=== PATIENT | female | born 1970 | race Caucasian/White ===

== ENCOUNTER 2022-04-13 01:54 | Inpatient (IN) ==
[2022-04-13] MEDS ORDERED: Ondansetron 4 MG/2 ML VIAL IVP PRN (11:15)
[2022-04-13] MEDS ORDERED: Naloxone 0.4 MG/ML INJ IVP PRN (11:15)
[2022-04-13] MEDS ORDERED: Acetaminophen 325 MG TABLET PO PRN (11:15)
[2022-04-13 11:56] LABS: Basophils % 0.2 %; Hematocrit 29.8 % (35.3-44.9); Hemoglobin 9.5 g/dL (11.5-15.4); Immature Granulocytes % 1.2 % (0-4); Lymphocytes # 0.6 K/mcL (0.6-4.6); Mean Corpuscular HGB Conc 31.9 g/dL (31.6-35.5); Mean Corpuscular Hemoglobin 25.5 pg (28.0-33.3); Mean Corpuscular Volume 79.9 fL (83.0-100.0); Mean Platelet Volume 8.9 fL (9.4-12.4); Monocytes # 0.4 K/mcL (0.0-1.3); Monocytes % 2.1 %; Neutrophils # 18.5 K/mcL (1.6-8.9); Platelet Count 490 K/mcL (140-400); Red Blood Count 3.73 M/mcL (3.82-4.97); Red Cell Distribution Width 14.3 % (11.5-14.5); Segmented Neutrophils % 93.5 %; White Blood Count 19.8 K/mcL (4.3-11.1)
[2022-04-13 12:12] LABS: INR 1.3; Prothrombin Time 14.8 Seconds (9.4-12.1)
[2022-04-13 12:15] LABS: Activated Partial Thrombo Time 34.8 Seconds (26.0-36.0)
[2022-04-13] MEDS: Piperacillin/Tazobactam 3.375 GM in 0.9 % Sodium Chloride Mini Bag 100 ML IVPB SCH ×2 (12:26→22:58)
[2022-04-13 12:35] LABS: Alanine Aminotransferase 27 Units/L (7-52); Albumin 3.4 g/dL (3.5-5.7); Albumin/Globulin Ratio 0.9 (1.1-2.2); Alkaline Phosphatase 102 Units/L (34-104); Aspartate Amino Transferase 39 Units/L (13-39); BUN/Creatinine Ratio 27 (6-26); Bilirubin,Total 0.3 mg/dL (0.3-1.0); Blood Urea Nitrogen 16 mg/dL (6-20); Calcium 9.2 mg/dL (8.6-10.3); Carbon Dioxide 26 mEq/L (23-29); Chloride 102 mEq/L (98-107); Globulin 3.8 g/dL (2.4-3.5); Glucose 124 mg/dL (70-105); Magnesium 1.8 mg/dL (1.6-2.6); Osmolality,Calculated 283 (280-300); Potassium 4.3 mEq/L (3.5-5.1); Sodium 135 mEq/L (136-145); Total Protein 7.2 g/dL (6.4-8.9); Troponin I < 0.03 ng/mL (< 0.04)
[2022-04-13] MEDS: Ipratropium/Albuterol Neb 3 ML IH SCH ×2 (15:44→22:49)
[2022-04-13] MEDS ORDERED: Vancomycin 1,500 MG/265 ML IV.SOLN IVPB ONE (16:00)
[2022-04-13] MEDS: MethylPREDNISolone 40 MG/ML VIAL IVP SCH ×2 (16:54→22:57)
[2022-04-13] MEDS: 0.9 % Sodium Chloride 1,000 ML IVC SCH (16:54)
[2022-04-13] MEDS: *HR* Heparin 5,000 UNIT/ML VIAL SQ SCH (16:57)
[2022-04-14 00:55] LABS: Adenovirus Not Detected (Not Detect); Bordetella Pertussis Not Detected (Not Detect); Chlamydophila pneumoniae Not Detected (Not Detect); Coronavirus 229E Not Detected (Not Detect); Coronavirus HKU1 Not Detected (Not Detect); Coronavirus NL63 Not Detected (Not Detect); Coronavirus OC43 Not Detected (Not Detect); Human Metapneumovirus Not Detected (Not Detect); Human Rhinovirus/Enterovirus Not Detected (Not Detect); Influenza A Subtype 2009 H1 Not Detected (Not Detect); Influenza B Not Detected (Not Detect); Mycoplasma pneumoniae Not Detected (Not Detect); Parainfluenza Virus 1 Not Detected (Not Detect); Parainfluenza Virus 2 Not Detected (Not Detect); Parainfluenza Virus 3 Not Detected (Not Detect); Parainfluenza Virus 4 Not Detected (Not Detect); Respiratory Syncytial Virus Not Detected (Not Detect); SARS-CoV-2 Not Detected (Not Detect)
[2022-04-14] MEDS ORDERED: Vancomycin 1,250 MG/262.5 ML IV.SOLN IVPB SCH (04:00)
[2022-04-14] MEDS: Ipratropium/Albuterol Neb 3 ML IH SCH ×4 (04:26→22:22)
[2022-04-14] MEDS: 0.9 % Sodium Chloride 1,000 ML IVC SCH ×3 (05:21→22:02)
[2022-04-14] MEDS: Piperacillin/Tazobactam 3.375 GM in 0.9 % Sodium Chloride Mini Bag 100 ML IVPB SCH ×3 (05:21→20:36)
[2022-04-14 05:22] LABS: Basophils % 0.1 %; Mean Platelet Volume 9.4 fL (9.4-12.4); Red Cell Distribution Width 14.5 % (11.5-14.5)
[2022-04-14] MEDS: *HR* Heparin 5,000 UNIT/ML VIAL SQ SCH ×2 (05:22→16:39)
[2022-04-14 05:23] LABS: Hematocrit 29.9 % (35.3-44.9); Hemoglobin 9.4 g/dL (11.5-15.4); Immature Granulocytes % 1.4 % (0-4); Lymphocytes # 0.7 K/mcL (0.6-4.6); Lymphocytes % 2.6 %; Mean Corpuscular HGB Conc 31.4 g/dL (31.6-35.5); Mean Corpuscular Hemoglobin 25.5 pg (28.0-33.3); Monocytes # 0.8 K/mcL (0.0-1.3); Monocytes % 2.9 %; Neutrophils # 24.7 K/mcL (1.6-8.9); Platelet Count 507 K/mcL (140-400); Red Blood Count 3.69 M/mcL (3.82-4.97); White Blood Count 26.6 K/mcL (4.3-11.1)
[2022-04-14 05:41] LABS: BUN/Creatinine Ratio 26 (6-26); Blood Urea Nitrogen 14 mg/dL (6-20); Calcium 8.7 mg/dL (8.6-10.3); Carbon Dioxide 23 mEq/L (23-29); Chloride 107 mEq/L (98-107); Glucose 155 mg/dL (70-105); Osmolality,Calculated 284 (280-300); Potassium 3.9 mEq/L (3.5-5.1); Sodium 135 mEq/L (136-145)
[2022-04-14 06:05] LABS: Hypochromasia Present (Not Present); Platelet Estimate Increased (Normal)
[2022-04-14] MEDS ORDERED: Furosemide 20 MG/2 ML VIAL IVP ONE (07:37)
[2022-04-14] MEDS: MethylPREDNISolone 40 MG/ML VIAL IVP SCH (08:42)
[2022-04-14] MEDS: predniSONE 20 MG TABLET PO SCH (08:48)
[2022-04-14] MEDS: Pantoprazole 40 MG VIAL IVP SCH (08:48)
[2022-04-14 12:03] LABS: Mucus,Urine Few per lpf (None-Few); RBC,Urine 0-3 per hpf (0-3); Squamous Epithelial Cell,Urine Few per hpf (None-Few); WBC,Urine 0-3 per hpf (0-3)
[2022-04-14 12:04] LABS: Bilirubin,Urine Negative (Negative); Blood,Urine Negative (Negative); Clarity,Urine Clear (Clear); Color,Urine Colorless (Yellow); Glucose,Urine (UA) Normal (Normal); Ketones,Urine Negative (Negative); Leukocyte Esterase,Urine Negative (Negative); Nitrite,Urine Negative (Negative); Protein,Urine Negative (Neg-Trace); Specific Gravity,Urine 1.009 (1.010-1.025); Urobilinogen,Urine Normal (Normal)
[2022-04-14] MEDS: Furosemide 40 MG/4 ML VIAL IVP SCH (16:40)
[2022-04-14] MEDS ORDERED: *HR* LORazepam 2 MG/ML VIAL IVP ONE (16:59)
[2022-04-14] MEDS ORDERED: Furosemide 20 MG/2 ML VIAL IVP SCH (17:00)
[2022-04-15] MEDS: 0.9 % Sodium Chloride 1,000 ML IVC SCH ×2 (00:57→05:12)
[2022-04-15] MEDS: Piperacillin/Tazobactam 3.375 GM in 0.9 % Sodium Chloride Mini Bag 100 ML IVPB SCH ×3 (03:15→21:27)
[2022-04-15] MEDS: Ipratropium/Albuterol Neb 3 ML IH SCH ×4 (03:52→21:52)
[2022-04-15] MEDS: *HR* Heparin 5,000 UNIT/ML VIAL SQ SCH ×3 (05:21→17:21)
[2022-04-15] MEDS: FLUoxetine 20 MG CAPSULE PO SCH (07:46)
[2022-04-15] MEDS: predniSONE 20 MG TABLET PO SCH (07:46)
[2022-04-15] MEDS: Pantoprazole 40 MG VIAL IVP SCH (07:47)
[2022-04-15] MEDS: hydrOXYzine pamoate 25 MG CAPSULE PO SCH (07:47)
[2022-04-15] MEDS: Furosemide 40 MG/4 ML VIAL IVP SCH ×2 (07:47→14:47)
[2022-04-15 08:57] LABS: Basophils % 0.1 %; Eosinophils % 0.2 %; Hematocrit 30.9 % (35.3-44.9); Hemoglobin 9.4 g/dL (11.5-15.4); Immature Granulocytes % 1.2 % (0-4); Lymphocytes # 1.7 K/mcL (0.6-4.6); Lymphocytes % 8.3 %; Mean Corpuscular HGB Conc 30.4 g/dL (31.6-35.5); Mean Corpuscular Hemoglobin 24.5 pg (28.0-33.3); Mean Corpuscular Volume 80.5 fL (83.0-100.0); Mean Platelet Volume 9.2 fL (9.4-12.4); Monocytes # 0.9 K/mcL (0.0-1.3); Monocytes % 4.2 %; Neutrophils # 17.7 K/mcL (1.6-8.9); Platelet Count 576 K/mcL (140-400); Red Blood Count 3.84 M/mcL (3.82-4.97); Red Cell Distribution Width 14.7 % (11.5-14.5); White Blood Count 20.6 K/mcL (4.3-11.1)
[2022-04-15 09:13] LABS: BUN/Creatinine Ratio 29 (6-26); Blood Urea Nitrogen 19 mg/dL (6-20); Calcium 8.6 mg/dL (8.6-10.3); Carbon Dioxide 26 mEq/L (23-29); Chloride 103 mEq/L (98-107); Glucose 101 mg/dL (70-105); Magnesium 1.7 mg/dL (1.6-2.6); Osmolality,Calculated 284 (280-300); Potassium 3.6 mEq/L (3.5-5.1); Sodium 136 mEq/L (136-145)
[2022-04-15] MEDS ORDERED: Iopamidol - 370 500 ML MLS IVP ONE (09:50)
[2022-04-15] MEDS ORDERED: Albumin 25% 25gram/100mL 25 GM/100 ML IV.SOLN IVPB ONE (14:45)
[2022-04-15 22:34] LABS: ABG Base Excess 1 mEq/L (-2 to 3); ABG HCO3 26 mEq/L (21-27); ABG Oxygen Saturation 79 % (95-98); ABG PCO2 41 mmHg (35-45); ABG PO2 43 mmHg (85-104); ABG TCO2 27 mEq/L (20-26)
[2022-04-15 22:43] LABS: ABG Base Excess 1 mEq/L (-2 to 3); ABG HCO3 25 mEq/L (21-27); ABG Oxygen Saturation 95 % (95-98); ABG PCO2 36 mmHg (35-45); ABG PH 7.45 pH Units (7.32-7.45); ABG PO2 74 mmHg (85-104); ABG TCO2 26 mEq/L (20-26)
[2022-04-16] MEDS: Ipratropium/Albuterol Neb 3 ML IH SCH ×4 (04:03→22:45)
[2022-04-16 04:29] LABS: Basophils % 0.1 %; Eosinophils # 0.1 K/mcL (0.0-0.6); Eosinophils % 0.3 %; Hematocrit 28.6 % (35.3-44.9); Hemoglobin 8.6 g/dL (11.5-15.4); Immature Granulocytes % 0.8 % (0-4); Lymphocytes # 1.3 K/mcL (0.6-4.6); Lymphocytes % 8.5 %; Mean Corpuscular HGB Conc 30.1 g/dL (31.6-35.5); Mean Corpuscular Hemoglobin 24.4 pg (28.0-33.3); Mean Platelet Volume 9.4 fL (9.4-12.4); Monocytes # 0.8 K/mcL (0.0-1.3); Monocytes % 5.5 %; Neutrophils # 12.5 K/mcL (1.6-8.9); Platelet Count 545 K/mcL (140-400); Red Blood Count 3.53 M/mcL (3.82-4.97); Red Cell Distribution Width 14.7 % (11.5-14.5); Segmented Neutrophils % 84.8 %; White Blood Count 14.8 K/mcL (4.3-11.1)
[2022-04-16 04:50] LABS: BUN/Creatinine Ratio 36 (6-26); Blood Urea Nitrogen 20 mg/dL (6-20); Calcium 8.6 mg/dL (8.6-10.3); Carbon Dioxide 28 mEq/L (23-29); Chloride 103 mEq/L (98-107); Glucose 91 mg/dL (70-105); Osmolality,Calculated 288 (280-300); Potassium 3.5 mEq/L (3.5-5.1); Sodium 138 mEq/L (136-145)
[2022-04-16] MEDS: Piperacillin/Tazobactam 3.375 GM in 0.9 % Sodium Chloride Mini Bag 100 ML IVPB SCH ×3 (05:04→20:02)
[2022-04-16] MEDS: FLUoxetine 20 MG CAPSULE PO SCH (08:44)
[2022-04-16] MEDS: predniSONE 20 MG TABLET PO SCH (08:44)
[2022-04-16] MEDS: hydrOXYzine pamoate 25 MG CAPSULE PO SCH (08:45)
[2022-04-16] MEDS: Pantoprazole 40 MG VIAL IVP SCH (08:47)
[2022-04-16] MEDS: Furosemide 40 MG/4 ML VIAL IVP SCH ×2 (08:47→15:14)
[2022-04-16] MEDS ORDERED: Albuterol 2.5 MG/3 ML NEBULIZER IH PRN (09:59)
[2022-04-16] MEDS ORDERED: *HR* Succinylcholine 200 MG/10 ML VIAL IVP ONE (10:00)
[2022-04-16] MEDS ORDERED: Ondansetron 4 MG/2 ML VIAL ONE (10:00)
[2022-04-16] MEDS ORDERED: Lidocaine -MPF 2% 5 ML VIAL ONE (10:00)
[2022-04-16] MEDS ORDERED: *HR* FentaNYL (PF) 100 MCG/2 ML VIAL ONE (10:00)
[2022-04-16] MEDS ORDERED: *HR* Propofol 200 MG/20 ML VIAL IVP ONE ×2 (10:00→10:51)
[2022-04-16] MEDS ORDERED: Furosemide 20 MG/2 ML VIAL IVP ONE (10:33)
[2022-04-16] MEDS ORDERED: *HR* Phenylephrine 10 MG/ML VIAL ONE (10:56)
[2022-04-16] MEDS ORDERED: Artificial Tears SOLN 15 ML BOTTLE BOTH EYES PRN (11:09)
[2022-04-16] MEDS: FentaNYL (PF) 1,000 MCG/100 ML IV.SOLN IVC SCH ×3 (11:15→21:47)
[2022-04-16 11:45] LABS: ABG Base Excess 4 mEq/L (-2 to 3); ABG HCO3 30 mEq/L (21-27); ABG Oxygen Saturation 100 % (95-98); ABG PCO2 49 mmHg (35-45); ABG PH 7.39 pH Units (7.32-7.45); ABG PO2 167 mmHg (85-104); ABG TCO2 31 mEq/L (20-26); Blood Gas VT 420 cc
[2022-04-16] MEDS ORDERED: 0.9 % Sodium Chloride 1,000 ML IVC ONE (11:46)
[2022-04-16] MEDS ORDERED: 0.9 % Sodium Chloride 1,000 ML ONE (11:50)
[2022-04-16] MEDS: Artificial Tears SOLN 15 ML BOTTLE BOTH EYES SCH ×4 (11:51→23:49)
[2022-04-16] MEDS: Chlorhexidine Rinse 15 ML MOUTHWASH MM SCH ×2 (11:51→20:03)
[2022-04-16] MEDS: levoFLOXacin 750 MG/150 ML 750 MG/150 ML BAG IVPB SCH (15:11)
[2022-04-16] MEDS: methylPREDNISolone 125 MG/2 ML VIAL IVP SCH ×2 (16:45→23:50)
[2022-04-16] MEDS ORDERED: methylPREDNISolone 125 MG/2 ML VIAL IM SCH (18:00)
[2022-04-17] MEDS: Ipratropium/Albuterol Neb 3 ML IH SCH ×4 (03:56→22:47)
[2022-04-17 04:04] LABS: ABG Base Excess 3 mEq/L (-2 to 3); ABG HCO3 30 mEq/L (21-27); ABG Oxygen Saturation 90 % (95-98); ABG PCO2 62 mmHg (35-45); ABG PO2 67 mmHg (85-104); ABG TCO2 32 mEq/L (20-26); Blood Gas Modality ASSIST CONTROL; Blood Gas VT 420 cc
[2022-04-17] MEDS: Artificial Tears SOLN 15 ML BOTTLE BOTH EYES SCH ×6 (04:59→23:28)
[2022-04-17] MEDS: Piperacillin/Tazobactam 3.375 GM in 0.9 % Sodium Chloride Mini Bag 100 ML IVPB SCH ×3 (04:59→20:02)
[2022-04-17] MEDS: *HR* Heparin 5,000 UNIT/ML VIAL SQ SCH ×2 (05:01→17:01)
[2022-04-17] MEDS: methylPREDNISolone 125 MG/2 ML VIAL IVP SCH ×4 (05:02→23:28)
[2022-04-17 05:08] LABS: Basophils % 0.1 %; Hematocrit 28.4 % (35.3-44.9); Hemoglobin 9.1 g/dL (11.5-15.4); Immature Granulocytes % 0.8 % (0-4); Lymphocytes # 0.2 K/mcL (0.6-4.6); Lymphocytes % 1.7 %; Mean Corpuscular Hemoglobin 26.4 pg (28.0-33.3); Mean Corpuscular Volume 82.3 fL (83.0-100.0); Mean Platelet Volume 10.2 fL (9.4-12.4); Monocytes # 0.4 K/mcL (0.0-1.3); Monocytes % 3.2 %; Neutrophils # 13.1 K/mcL (1.6-8.9); Nucleated Red Blood Cells 0.2 /100 WBC (0); Platelet Count 447 K/mcL (140-400); Red Blood Count 3.45 M/mcL (3.82-4.97); Red Cell Distribution Width 14.8 % (11.5-14.5); Segmented Neutrophils % 94.2 %; White Blood Count 13.9 K/mcL (4.3-11.1)
[2022-04-17 05:38] LABS: BUN/Creatinine Ratio 39 (6-26); Blood Urea Nitrogen 26 mg/dL (6-20); Calcium 8.1 mg/dL (8.6-10.3); Carbon Dioxide 28 mEq/L (23-29); Chloride 98 mEq/L (98-107); Glucose 146 mg/dL (70-105); Osmolality,Calculated 283 (280-300); Potassium 4.1 mEq/L (3.5-5.1); Sodium 133 mEq/L (136-145)
[2022-04-17] MEDS: Furosemide 40 MG/4 ML VIAL IVP SCH ×2 (07:41→17:01)
[2022-04-17] MEDS: Pantoprazole 40 MG VIAL IVP SCH (07:42)
[2022-04-17] MEDS: hydrOXYzine pamoate 25 MG CAPSULE PO SCH ×2 (07:42→07:47)
[2022-04-17] MEDS: Chlorhexidine Rinse 15 ML MOUTHWASH MM SCH ×2 (07:42→20:02)
[2022-04-17] MEDS: FLUoxetine 20 MG CAPSULE PO SCH ×2 (07:42→07:47)
[2022-04-17 08:43] LABS: ABG Base Excess 3 mEq/L (-2 to 3); ABG HCO3 30 mEq/L (21-27); ABG Oxygen Saturation 95 % (95-98); ABG PCO2 53 mmHg (35-45); ABG PH 7.35 pH Units (7.32-7.45); ABG PO2 78 mmHg (85-104); ABG TCO2 31 mEq/L (20-26); Blood Gas Modality AF; Blood Gas VT 400 cc
[2022-04-17] MEDS: levoFLOXacin 750 MG/150 ML 750 MG/150 ML BAG IVPB SCH (14:08)
[2022-04-17 15:26] LABS: Source of Body Fluid RLL BAL
[2022-04-17 18:58] LABS: Appearance of Body Fluid Hazy (Clear); Volume of Body Fluid 25 mL
[2022-04-17] MEDS: FentaNYL (PF) 1,000 MCG/100 ML IV.SOLN IVC SCH (20:19)
[2022-04-18] MEDS: Piperacillin/Tazobactam 3.375 GM in 0.9 % Sodium Chloride Mini Bag 100 ML IVPB SCH ×3 (04:27→20:33)
[2022-04-18] MEDS: Ipratropium/Albuterol Neb 3 ML IH SCH ×4 (04:32→21:52)
[2022-04-18 04:45] LABS: ABG Base Excess 10 mEq/L (-2 to 3); ABG HCO3 36 mEq/L (21-27); ABG Oxygen Saturation 99 % (95-98); ABG PCO2 58 mmHg (35-45); ABG PO2 134 mmHg (85-104); ABG TCO2 38 mEq/L (20-26); Blood Gas Modality ASSIST CONTROL; Blood Gas VT 400 cc
[2022-04-18] MEDS: FentaNYL (PF) 1,000 MCG/100 ML IV.SOLN IVC SCH (04:50)
[2022-04-18] MEDS: Artificial Tears SOLN 15 ML BOTTLE BOTH EYES SCH ×2 (05:21→07:43)
[2022-04-18] MEDS: *HR* Heparin 5,000 UNIT/ML VIAL SQ SCH ×2 (05:21→17:11)
[2022-04-18] MEDS: methylPREDNISolone 125 MG/2 ML VIAL IVP SCH (05:21)
[2022-04-18] MEDS: Pantoprazole 40 MG VIAL IVP SCH (07:42)
[2022-04-18] MEDS: Chlorhexidine Rinse 15 ML MOUTHWASH MM SCH (07:42)
[2022-04-18] MEDS: Furosemide 40 MG/4 ML VIAL IVP SCH ×2 (07:42→17:09)
[2022-04-18] MEDS: FLUoxetine 20 MG CAPSULE PO SCH (07:43)
[2022-04-18] MEDS: hydrOXYzine pamoate 25 MG CAPSULE PO SCH (07:43)
[2022-04-18 07:56] LABS: Hematocrit 27.2 % (35.3-44.9); Hemoglobin 8.2 g/dL (11.5-15.4); Mean Corpuscular HGB Conc 30.1 g/dL (31.6-35.5); Mean Corpuscular Hemoglobin 24.6 pg (28.0-33.3); Mean Corpuscular Volume 81.4 fL (83.0-100.0); Platelet Count 488 K/mcL (140-400); Red Blood Count 3.34 M/mcL (3.82-4.97); Red Cell Distribution Width 14.7 % (11.5-14.5); White Blood Count 17.5 K/mcL (4.3-11.1)
[2022-04-18 07:59] LABS: VBG Ionized Calcium 1.16 mmol/L (1.15-1.35)
[2022-04-18 08:49] LABS: BUN/Creatinine Ratio 55 (6-26); Blood Urea Nitrogen 35 mg/dL (6-20); Carbon Dioxide 33 mEq/L (23-29); Chloride 104 mEq/L (98-107); Glucose 147 mg/dL (70-105); Magnesium 2.6 mg/dL (1.6-2.6); Osmolality,Calculated 305 (280-300); Phosphorous 3.3 mg/dL (2.7-4.5); Potassium 4.2 mEq/L (3.5-5.1); Sodium 142 mEq/L (136-145)
[2022-04-18] MEDS: levoFLOXacin 750 MG/150 ML 750 MG/150 ML BAG IVPB SCH (15:15)
[2022-04-18] MEDS ORDERED: methylPREDNISolone 125 MG/2 ML VIAL IVP SCH (18:00)
[2022-04-19] MEDS: Piperacillin/Tazobactam 3.375 GM in 0.9 % Sodium Chloride Mini Bag 100 ML IVPB SCH (04:00)
[2022-04-19] MEDS: Ipratropium/Albuterol Neb 3 ML IH SCH ×4 (04:26→22:33)
[2022-04-19 05:22] LABS: Basophils % 0.1 %; Hematocrit 26.9 % (35.3-44.9); Hemoglobin 8.1 g/dL (11.5-15.4); Immature Granulocytes % 0.9 % (0-4); Lymphocytes % 6.7 %; Mean Corpuscular HGB Conc 30.1 g/dL (31.6-35.5); Mean Corpuscular Hemoglobin 24.4 pg (28.0-33.3); Mean Platelet Volume 8.8 fL (9.4-12.4); Monocytes # 0.9 K/mcL (0.0-1.3); Monocytes % 6.5 %; Neutrophils # 12.2 K/mcL (1.6-8.9); Nucleated Red Blood Cells 0.1 /100 WBC (0); Platelet Count 437 K/mcL (140-400); Red Blood Count 3.32 M/mcL (3.82-4.97); Red Cell Distribution Width 14.6 % (11.5-14.5); Segmented Neutrophils % 85.8 %; White Blood Count 14.3 K/mcL (4.3-11.1)
[2022-04-19 05:39] LABS: BUN/Creatinine Ratio 60 (6-26); Blood Urea Nitrogen 33 mg/dL (6-20); Calcium 8.5 mg/dL (8.6-10.3); Carbon Dioxide 35 mEq/L (23-29); Chloride 100 mEq/L (98-107); Glucose 128 mg/dL (70-105); Magnesium 2.2 mg/dL (1.6-2.6); Osmolality,Calculated 295 (280-300); Potassium 4.1 mEq/L (3.5-5.1); Sodium 138 mEq/L (136-145)
[2022-04-19 05:39] LABS: VBG Ionized Calcium 1.17 mmol/L (1.15-1.35)
[2022-04-19] MEDS: *HR* Heparin 5,000 UNIT/ML VIAL SQ SCH ×2 (06:22→17:01)
[2022-04-19] MEDS: FLUoxetine 20 MG CAPSULE PO SCH (07:53)
[2022-04-19] MEDS: hydrOXYzine pamoate 25 MG CAPSULE PO SCH (07:53)
[2022-04-19] MEDS: Furosemide 40 MG/4 ML VIAL IVP SCH ×2 (07:53→17:00)
[2022-04-19] MEDS: Pantoprazole 40 MG VIAL IVP SCH (07:54)
[2022-04-19] MEDS ORDERED: MethylPREDNISolone 40 MG/ML VIAL IVP SCH (09:00)
[2022-04-19] MEDS ORDERED: Albuterol 2.5 MG/3 ML NEBULIZER IH PRN (09:50)
[2022-04-19 11:33] LABS: ANA IgG by ELISA NONE DETECTED (None Detected)
[2022-04-20 02:48] LABS: Basophils % 0.2 %; Eosinophils # 0.1 K/mcL (0.0-0.6); Eosinophils % 0.9 %; Hematocrit 28.2 % (35.3-44.9); Hemoglobin 8.6 g/dL (11.5-15.4); Immature Granulocytes % 1.9 % (0-4); Lymphocytes # 2.3 K/mcL (0.6-4.6); Mean Corpuscular HGB Conc 30.5 g/dL (31.6-35.5); Mean Corpuscular Hemoglobin 24.6 pg (28.0-33.3); Mean Corpuscular Volume 80.6 fL (83.0-100.0); Mean Platelet Volume 8.8 fL (9.4-12.4); Monocytes # 1.4 K/mcL (0.0-1.3); Monocytes % 10.2 %; Neutrophils # 9.5 K/mcL (1.6-8.9); Nucleated Red Blood Cells 0.1 /100 WBC (0); Platelet Count 456 K/mcL (140-400); Red Cell Distribution Width 14.6 % (11.5-14.5); Segmented Neutrophils % 69.8 %; White Blood Count 13.7 K/mcL (4.3-11.1)
[2022-04-20 03:07] LABS: Alanine Aminotransferase 22 Units/L (7-52); Albumin 2.8 g/dL (3.5-5.7); Albumin/Globulin Ratio 0.9 (1.1-2.2); Alkaline Phosphatase 69 Units/L (34-104); Aspartate Amino Transferase 16 Units/L (13-39); BUN/Creatinine Ratio 59 (6-26); Bilirubin,Total 0.2 mg/dL (0.3-1.0); Blood Urea Nitrogen 34 mg/dL (6-20); Calcium 8.8 mg/dL (8.6-10.3); Carbon Dioxide 35 mEq/L (23-29); Chloride 102 mEq/L (98-107); Globulin 3.1 g/dL (2.4-3.5); Glucose 109 mg/dL (70-105); Osmolality,Calculated 300 (280-300); Sodium 141 mEq/L (136-145); Total Protein 5.9 g/dL (6.4-8.9)
[2022-04-20] MEDS: Ipratropium/Albuterol Neb 3 ML IH SCH ×3 (04:28→15:44)
[2022-04-20] MEDS: *HR* Heparin 5,000 UNIT/ML VIAL SQ SCH (05:56)
[2022-04-20] MEDS ORDERED: predniSONE 20 MG TABLET PO SCH (09:00)
[2022-04-20] MEDS ORDERED: levoFLOXacin 750 MG TABLET PO SCH ×2 (09:00→12:15)
[2022-04-20] MEDS: hydrOXYzine pamoate 25 MG CAPSULE PO SCH (10:06)
[2022-04-20] MEDS: Pantoprazole 40 MG VIAL IVP SCH ×2 (10:07→10:17)
[2022-04-20] MEDS: FLUoxetine 20 MG CAPSULE PO SCH (10:07)
[2022-04-20] MEDS: Furosemide 40 MG/4 ML VIAL IVP SCH (10:08)
[2022-04-20 11:51] VITALS: BP 95/58; PULSE 73; TEMP 97.8; O2SAT 90
[2022-04-20] MEDS ORDERED: Furosemide 40 MG TABLET PO SCH (17:00)
[2022-04-21 00:39] LABS: ANCA IFA Titer <1:20 (<1:20)
[2022-04-21] MEDS ORDERED: levoFLOXacin 750 MG TABLET PO SCH (09:00)
[2022-04-21 09:19] LABS: ANCA IFA Pattern NONE DETECTED (None Detected); Serine Protease-3 Antibody 0 AU/mL (0-19)
[2022-04-23 08:39] LABS: Influenza A PCR Body Fluid NOT DETECTED; Influenza B PCR Body Fluid NOT DETECTED; RVP Body Fluid Source BAL
[2022-04-23 10:31] LABS: RSV PCR Body Fluid NOT DETECTED
== END 2022-04-20 17:44 | disposition home or self-care (01) | DRG 139 ==
LOC: 2ANU → SUATTDRO 08:56 → ICNU 04-16 11:26 → 2ANU 04-19 15:06
PROVIDERS: ADMIT Internal Medicine; ATTEND Family Medicine
PROC: ENDOBBX (2022-04-16 10:00)